=== PATIENT | male | born 1985 | race Caucasian/White ===

== ENCOUNTER 2017-04-09 15:39 | Emergency (ER) | payer OTHER ==
[~2017-04-09] VITALS: Ht 182.9 cm; Wt 58.5 kg
[~2017-04-09 15:39] MED LIST: APAP; BENTYL10 MG PO; BENTYL20 MG PO; CIPRO500 MG PO; CLEOCIN300 MG PO; COLACE100 MG PO; DICYCLOMINE HCL20 MG PO; DILAUDID2 MG PO; DONNATAL1 TABLET PO; ENDOCET 5-3251 EACH PO; FENTANYL1 EAC4 TD; FLAGYL500 MG PO; GABAPENTIN300 MG PO; GRALISE300 MG PO; HYDROCO; HYDROCODON-ACE1 EAC7 PO; HYDROCODON-ACE1 EACH; LEVAQUIN500 MG PO; LYRICA50 MG PO; METRONIDAZOLE500 MG PO; MORPHINE SULFAT15 M1 PO; NEURONTIN300 MG PO; NO MEDICATIONS; NOHOMEMEDS; NORCO 5/3251 TABLET PO; NUCYNTA ER50 MG PO; OXYCODONE HCL5 MG PO; PANTOPRAZOLE SO40 MG PO; PERCOCET 5/31 TABLET PO; PERCOCET 7.51 TABLET PO; PHENERGAN25 MG PR; PREDNISONE20 MG PO; PRILOSEC20 MG PO; PROMETHAZINE HC25 M1 PO; PROTONIX40 MG PO; TIZANIDINE HCL2 M1 PO; TRAMADOL HCL TAB 50M; TRAMADOL HCL50 MG; TRAMADOL HCL50 MG PO; TYLENOL WITH C1 EACH PO; ULTRAM50 MG PO; VICODIN,LORT1 TABLET PO; ZANAFLEX2 M1 PO; ZANAFLEX2 MG PO; ZITHROMAX250 MG PO; ZOFRAN ODT4 MG PO; ZOFRAN4 MG PO; ~No Medications
[2017-04-09 16:59] LABS: MCH 23.5 PG (29.0-34.0); MCHC 30.9 G/DL (30.0-36.0); MEAN PLAT.VOLUME 9.8 uM^3 (9.0-12.4); PLATELET COUNT 356 K/uL (156-360); RBC DIS.WIDTH-CV 14.6 % (11.8-14.6); RBC DIS.WIDTH-SD 40.3 % (39-53); RED BLOOD COUNT 4.21 M/uL (4.00-5.50); WHITE BLOOD COUNT 6.8 K/uL (4.1-10.2)
[2017-04-09 17:10] LABS: CHLORIDE 108 mEq/L (99-109); POTASSIUM 4.2 mEq/L (3.7-5.4); SODIUM 139 mEq/L (136-147)
[2017-04-09 17:13] LABS: GLUCOSE 95 mg/dL (70-99)
[2017-04-09 17:14] LABS: ANION GAP 11 MEQ/L (2-14)
[2017-04-09 17:16] LABS: ALKALINE PHOSPHATASE 102 IU/L (3-129); GFR ESTIMATE (CALCULATED) > 59 mL/min/
[2017-04-09 17:17] LABS: UREA NITROGEN (BUN) 11 mg/dL (9-23)
[2017-04-09 17:20] LABS: LIPASE 78 U/L (1.0-51.0)
[2017-04-09 17:53] VITALS: BP 137/85
== END 2017-04-09 17:55 | disposition left against medical advice (07) ==
LOC: EME 15:39
PROVIDERS: Physician Assistant
DX: R10.32 Left lower quadrant pain (principal); Z93.3 Colostomy status; Z88.1 Allergy status to other antibiotic agents; Z88.2 Allergy status to sulfonamides; Z88.0 Allergy status to penicillin; Z88.6 Allergy status to analgesic agent; Z87.891 Personal history of nicotine dependence
CPT/HCPCS: 74000; 80053; 81003; 83690; 85027; 99281; 99284

== ENCOUNTER 2017-10-14 20:17 | Emergency (ER) | payer OTHER ==
[~2017-10-14] VITALS: Ht 182.9 cm; Wt 60.4 kg
[~2017-10-14 20:17] MED LIST changes: +LORTAB 5-325 M1 EACH PO; +MIRALAX17 GM PO; +PERCOCET 10/1 TABLET PO
[2017-10-14 21:31] LABS: HEMATOCRIT 33.1 % (38.0-50.0); MCH 23.2 PG (29.0-34.0); MCHC 31.4 G/DL (30.0-36.0); MCV 73.7 FL (86-99); MEAN PLAT.VOLUME 10.4 uM^3 (9.0-12.4); PLATELET COUNT 291 K/uL (156-360); RBC DIS.WIDTH-CV 18.6 % (11.8-14.6); RBC DIS.WIDTH-SD 49.7 % (39-53); RED BLOOD COUNT 4.49 M/uL (4.00-5.50); WHITE BLOOD COUNT 8.4 K/uL (4.1-10.2)
[2017-10-14 21:36] LABS: CHLORIDE 104 mEq/L (99-109); POTASSIUM 3.1 mEq/L (3.7-5.4); SODIUM 138 mEq/L (136-147)
[2017-10-14 21:38] LABS: GLUCOSE 110 mg/dL (70-99)
[2017-10-14 21:39] LABS: ANION GAP 11 MEQ/L (2-14)
[2017-10-14 21:40] LABS: TOTAL BILIRUBIN 3.7 mg/dL (0.0-1.0)
[2017-10-14 21:41] LABS: ALKALINE PHOSPHATASE 118 IU/L (3-129)
[2017-10-14 21:42] LABS: GFR ESTIMATE (CALCULATED) 58 mL/min/
[2017-10-14 21:43] LABS: UREA NITROGEN (BUN) 16 mg/dL (9-23)
[2017-10-14 21:45] LABS: LIPASE 28 U/L (1.0-51.0)
[2017-10-14 22:53] LABS: DIRECT BILIRUBIN 0.3 mg/dL (0.0-0.3)
[2017-10-14] MEDS ORDERED: BENTYL20 MG PO (22:59)
[2017-10-14] MEDS ORDERED: ZOFRAN ODT4 MG PO (22:59)
[2017-10-14 23:14] VITALS: BP 132/78
== END 2017-10-14 23:58 | disposition home or self-care (01) ==
LOC: RME 20:17 → EME 20:17 → RME 23:58
DX: R10.32 Left lower quadrant pain (principal); N28.9 Disorder of kidney and ureter, unspecified; E87.6 Hypokalemia; K51.90 Ulcerative colitis, unspecified, without complications; J45.909 Unspecified asthma, uncomplicated; Z93.3 Colostomy status; Z88.2 Allergy status to sulfonamides; Z88.0 Allergy status to penicillin; Z87.891 Personal history of nicotine dependence
CPT/HCPCS: 74020; 74177; 80053; 81003; 82248; 83690; 85027; 99281; 99285; J3010; J7030